=== PATIENT | female | born 1965 | race Caucasian/White ===

== ENCOUNTER 2019-11-12 20:36 | Emergency (ER) | payer OTHER, SELFPAY ==
[2019-11-12 20:38] VITALS: BP 217/110; PULSE 97; RESP 19; TEMP 36.6; O2SAT 100
--- NOTE | 2019-11-12 21:09 | ED.SKABFB ---
HPI - Skin/Abscess/Foreign Bdy General Chief complaint: Skin/Abscess/Foreign Body Stated complaint: bite of R arm Time Seen by Provider: 11/12/19 20:42 History of Present Illness HPI narrative: She has what she believes is a spider bite to the right antecubital fossa. Noticed it today. concerned that it is a brown recluse bite. She has killed multiple brown recluse spiders in her house recently. Bite itched at first, now mild burning sensation. No fever, pain. Related Data Allergies Allergy/AdvReac Type Severity Reaction Status Date / Time acetaminophen Allergy Unknown Verified 10/23/18 02:36 shellfish derived Allergy Unknown Anaphylactic Verified 10/23/18 02:36 Shock HYDROCODONE BIT Allergy Unknown Uncoded 10/23/18 02:36 Review of Systems Review of Systems: All systems reviewed & are unremarkable except as noted in HPI and below Constitutional: Constitutional: Denies chills and Denies fever(s) Cardiovascular: Cardiovascular: Denies chest pain Respiratory: Respiratory: Denies dyspnea Gastrointestinal: Gastrointestinal: Denies abdominal pain PMF Social History Social History Gender identity (if verbalized by the patient): Female Exam Const: General: no acute distress and alert Orientation/consciousness: patient oriented x3 HENMT: Head: normal to inspection Resp: Effort & Inspection: normal respiratory effort Auscultation: clear to auscultation bilaterally Cardio: Rate: regular rate Rhythm: regular rhythm Skin: Other: Punctate wound with minimal surrounding erythema in right AC Neuro: General: patient oriented x3, moves all extremities and CN's II-XI intact bilaterally Speech: normal speech Course Vital Signs Vital signs: Vital Signs Temperature 36.6 C 11/12/19 20:38 Pulse Rate 97 11/12/19 20:38 Respiratory Rate 11/12/19 20:38 Blood Pressure 217/110 H 11/12/19 20:38 Pulse Oximetry 100 11/12/19 20:38 Temperature 36.3 C L 11/12/19 21:15 Pulse Rate 80 11/12/19 21:15 Respiratory Rate 19 11/12/19 21:15 Blood Pressure 185/88 H 11/12/19 21:15 Pulse Oximetry 97 11/12/19 21:15 MDM - Skin/Abscess/Foreign Bdy MDM Narrative Medical decision making narrative: Exam consistent with possible brown recluse bite. Will start bactrim Medical Records Attestation: I reviewed the patient's medical records. Discharge Plan Discharge Clinical Impression: Brown recluse spider bite Patient Disposition: Home, Self-Care Condition: Stable Instructions: Antibiotic Form, Brown Recluse Spider Bite (ED) Prescriptions: New sulfamethoxazole-trimethoprim [Bactrim DS] 800-160 mg tablet 1 tablet PO Q12H Qty: 14 RF: 0 Follow-up/Referrals: Nishant,Tej Molina MD [Primary Care Provider] - Discharge Date/Time: 11/12/19 21:16
[2019-11-12 21:15] VITALS: BP 185/88; PULSE 80; RESP 19; TEMP 36.3; O2SAT 97
== END 2019-11-12 21:16 | disposition home or self-care (01) ==
PROVIDERS: Emergency Provider Emergency Medicine; PCP Family Medicine
DX: T63.331A Toxic effect of venom of brown recluse spider, accidental (unintentional), initial encounter (principal)
CPT/HCPCS: 99283; A9270

== ENCOUNTER 2020-06-05 18:25 | Inpatient (IN) | payer OTHER, SELFPAY ==
--- NOTE | ~2020-06-05 | XR_ITS ---
EXAMINATION: XR ankle RT min 3V EXAM DATE: 06/05/2020 20:40 INDICATION: Initial encounter following injury, with pain of the right ankle. TECHNIQUE: Right ankle frontal, lateral and oblique projections obtained and reviewed. Correlation is made to tibia-fibula examination 03/03/2010. FINDINGS: The right ankle mortise appears intact. There are moderate size inferior and tiny posterio r calcaneal spurs. There are no acute fractures or dislocations identified. There is no subcutaneous gas. The soft tissue is unremarkable. There are no radiopaque foreign bodies. IMPRESSION: 1. Right ankle exam without acute osseous findings. 2. Calcaneal spurs. Reviewed, dictated and finalized at location A. VERY RN
--- NOTE | ~2020-06-05 | XR_ITS ---
EXAMINATION: XR chest 2V EXAM DATE: 06/05/2020 19:29 INDICATION: Mid to left-sided chest pain down left arm for 2 hours, progressing. TECHNIQUE: Frontal and lateral projections of the chest obtained and reviewed. Comparison is made to prior examination from 05/21/2017. FINDINGS: The lungs are clear. There are no pleural effusions. The cardiomediastinal silhouette is upper limits of normal. There is no pneumothorax suspected. The bones and soft tissues are unremark able. IMPRESSION: No acute cardiopulmonary findings. Reviewed, dictated and finalized at location A. 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
--- NOTE | 2020-06-05 18:27 | ECG_ITS ---
Measurements Intervals [place] Rate: 93 P: 38 IN: 155 QRS: 19 QRSD: 91 T: 26 QT: 388 QTc: 484 Interpretive Statements SINUS RHYTHM VOLTAGE CRITERIA FOR LVH BORDERLINE ST-T WAVE ABNORMALITY- INFERIOR LEADS BORDERLINE ECG Electronically Signed On 06-06-2020 7:50:48 [employer] SWITCHMAN by Teo Anthony D.O.
[2020-06-05 18:45] VITALS: BP 191/108; PULSE 92; RESP 19; TEMP 36.4; O2SAT 97
[2020-06-05 19:05] LABS: Basophils Absolute Auto 0.1 K/mm3 (0.0-0.1); Basophils Percent Auto 1.2 % (0.2-1.2); Eosinophils Absolute Auto 0.2 K/mm3 (0-0.3); Eosinophils Percent Auto 2.1 % (0-4.4); Hematocrit 46.8 % (37.0-47.0); Hemoglobin 16.7 g/dL (12.0-15.0); Immature Granulocyte Absolute 0.06 K/mm3 (0.00-0.031); Immature Granulocyte Percent A 0.6 % (0-0.5); Lymphocytes Absolute Auto 3.02 K/mm3 (0.9-3.2); Lymphocytes Percent Auto 29.4 % (18.3-44.2); Mean Corpuscular HGB Conc 35.7 g/dl (32-36); Mean Corpuscular Hemoglobin 32.5 pg (26-34); Mean Corpuscular Volume 91.1 fl (80-100); Mean Platelet Volume 8.8 fl (7.4-10.4); Monocytes Percent Auto 10.1 % (2.6-8.5); Neutrophils Absolute Auto 5.8 K/mm3 (1.3-6.7); Neutrophils Percent Auto 56.6 % (45.5-73.1); Platelet Count Result 312 k/mm3 (150-375); Red Blood Count 5.14 M/mm3 (4.2-5.4); Red Cell Distribution Width 12.5 % (11.5-14.5); White Blood Count 10.3 K/mm3 (4.5-10.0)
[2020-06-05 19:19] LABS: Anion Gap 7 mmol/L (8-16); Blood Urea Nitrogen 10 mg/dL (7-17); Calcium 9.5 mg/dL (8.4-10.2); Carbon Dioxide 29 mmol/L (22-30); Chloride 102 mmol/L (98-107); Estimated CRCL calculation 95 ml/min; Estimated Glomerular Filt Rate > 60; Glucose 121 mg/dL (65-105); INR 0.9; Potassium 3.6 mmol/L (3.4-5.0); Prothrombin Time 12.2 Seconds (11.1-14.7); Sodium 138 mmol/L (137-145)
[2020-06-05 19:20] LABS: Partial Thromboplastin Time 24.5 SECONDS (22.3-36.8)
[2020-06-05 19:38] LABS: Troponin I 0.051 ng/mL (0.000-0.034)
[2020-06-05] MEDS: ASPIRIN 81 MG CHEWABLE TABLET 324 MG PO (20:03)
--- NOTE | 2020-06-05 20:24 | ED.GENADULT ---
HPI - General Adult General Chief complaint: Chest Pain Stated complaint: chest pain since 1400 Time Seen by Provider: 06/05/20 20:15 History of Present Illness HPI narrative: Patient a 54-year-old female who presents the emergency department with chief complaint of chest pain. The patient reports this evening she started having a tightness in her chest that radiated to her left arm and into her neck. Patient states she not had discomfort like this before reports she does have history of anxiety and attempted to take Xanax. The patient states that she took 1 mg of Xanax fell asleep took a nap and then when she woke up she started having discomfort again. The patient denies diaphoresis denies shortness of breath reports that she had a stress test many years ago but does have history of hypertension high cholesterol and she does smoke. Incidentally the patient reported that she was on a stepstool this evening and she lost her balance caught herself as she fell but rolled her right ankle. The patient states that she has pain on the lateral aspect of her right ankle. Patient took aspirin prior to arrival in the emergency department. Related Data Home Medications Medication Instructions Recorded Confirmed alprazolam 0.5 mg PO BID PRN 06/05/20 amlodipine 10 mg PO DAILY 06/05/20 aspirin [Adult Aspirin EC Low 81 mg PO DAILY 06/05/20 Strength] atenolol 25 mg PO BID 06/05/20 atorvastatin 20 mg PO HS 06/05/20 [id number]-wfkatoagjycce-etrb 1 tablet PO DIRECTED PRN 06/05/20 duloxetine 120 mg PO DAILY 06/05/20 eszopiclone [Lunesta] 3 mg PO HS 06/05/20 famotidine 40 mg PO HS 06/05/20 fluticasone propionate 1 spray INTRANASAL TID 06/05/20 hydrochlorothiazide 25 mg PO DAILY 06/05/20 lisinopril 10 mg PO BID 06/05/20 meclizine 25 mg PO TID PRN 06/05/20 omeprazole 40 mg PO DAILY 06/05/20 tramadol 50 mg PO TID PRN 06/05/20 vitamin B complex [B 1 tablet PO DAILY 06/05/20 Complex-Vitamin B12] Allergies Allergy/AdvReac Type Severity Reaction Status Date / Time shellfish derived Allergy Unknown Anaphylactic Verified 06/05/20 18:51 Shock HYDROCODONE BIT AdvReac Unknown Sweating Uncoded 06/05/20 18:51 Review of Systems Review of Systems: Narrative: A 10 system review of systems was completed on the patient and is negative except for what is stated in the HPI. Nursing and ancillary documentation was reviewed. [facility] Social History Social History Gender identity (if verbalized by the patient): Female Comments Past medical history significant for hypertension hyperlipidemia Social history patient reports that she smokes cigarettes Exam Narrative: Exam Narrative: GENERAL: Well-appearing, well-nourished, and in no acute distress. HEAD: Normocephalic, atraumatic. EYES: PERRLA and EOMI. ENT: Nares clear, no rhinorrhea or epistaxis. Mucous membranes moist. NECK: Supple. CHEST: Clear to auscultation. No respiratory distress. HEART: Regular rate and rhythm. No murmur heard. Normal peripheral pulses. ABDOMEN: Soft, nontender, nondistended, normal active bowel sounds. EXTREMITIES: Normal range of motion. No edema. There is tenderness to palpation on the lateral malleolus of the right ankle SKIN: Warm, dry, no rash. NEURO: No focal deficits. Alert and oriented x3. PSYCH: Normal mood and affect. Course Course Emergency Course: EKG is sinus rhythm rate of [address] elevation or ST depression Vital Signs Vital signs: Vital Signs Temperature 36.4 C L 06/05/20 18:45 Pulse Rate 92 06/05/20 18:45 Respiratory Rate 06/05/20 18:45 Blood Pressure 191/108 H 06/05/20 18:45 Pulse Oximetry 97 06/05/20 18:45 Temperature 36.4 C L 06/05/20 18:45 Pulse Rate 94 06/05/20 22:48 Respiratory Rate 06/05/20 20:45 Blood Pressure 178/94 H 06/05/20 20:45 Pulse Oximetry 95 06/05/20 20:45 Medical Decision Making Vital Signs Vital Si
[2020-06-05 20:45] VITALS: BP 178/94; PULSE 93; RESP 19; O2SAT 95
[2020-06-05 22:17] LABS: Troponin I 0.118 ng/mL (0.000-0.034)
[2020-06-05] MEDS: HEPARIN SODIUM 5,000 UNITS/ML VIAL 4000 UNITS IV PUSH (22:32)
[2020-06-05] MEDS: NITROGLYCERIN OINTMENT 1 INCH DOSE TRANSDERM (22:45)
[2020-06-05 22:48] VITALS: PULSE 94
[2020-06-05] MEDS: METOPROLOL TARTRATE INJ 5 MG/5 ML VIAL IV PUSH (22:48)
[2020-06-05 23:00] VITALS: BP 177/92; PULSE 85; RESP 18; O2SAT 93
[2020-06-05] MEDS: traMADol HCL (*CRX) 50 MG TABLET PO (23:01)
[2020-06-05] MEDS: HEPARIN SOD/D5W 100 UNITS/ML 25,000 UNITS/250 ML BAG 9 UNITS IV CONT (23:03)
[2020-06-06] VITALS (17 sets, daily range): BP systolic 127–178; BP diastolic 66–102; PULSE 18–88; RESP 14–20; TEMP 36–37.3; O2SAT 91–99; BMI 37.2
--- NOTE | 2020-06-06 00:55 | PC.NURSE ---
This patient, Shahida Early, was admitted to IMU Room 206-02. Patient/family oriented to hospital policies and general routines including ID bracelet, bed and alarms, visiting hours, pain management, procedures, bathroom and other care routines, personal items, smoking policy, room service/diet, and visiting hours. Information on how to activate the Rapid Response Team has been discussed. Patient/Family are encouraged to report perceived risks to care and to ask questions if they do not understand what they are told or what they should do.
[2020-06-06] MEDS: NITROGLYCERIN OINTMENT 1 INCH DOSE TRANSDERM ×4 (01:43→18:56)
[2020-06-06 01:59] LABS: Troponin I 0.174 ng/mL (0.000-0.034)
[2020-06-06 05:16] LABS: Basophils Absolute Auto 0.1 K/mm3 (0.0-0.1); Basophils Percent Auto 0.8 % (0.2-1.2); Eosinophils Absolute Auto 0.3 K/mm3 (0-0.3); Eosinophils Percent Auto 2.8 % (0-4.4); Hematocrit 43.7 % (37.0-47.0); Hemoglobin 15.2 g/dL (12.0-15.0); Immature Granulocyte Absolute 0.06 K/mm3 (0.00-0.031); Immature Granulocyte Percent A 0.6 % (0-0.5); Lymphocytes Absolute Auto 3.69 K/mm3 (0.9-3.2); Lymphocytes Percent Auto 39.2 % (18.3-44.2); Mean Corpuscular HGB Conc 34.8 g/dl (32-36); Monocytes Percent Auto 10.9 % (2.6-8.5); Neutrophils Absolute Auto 4.3 K/mm3 (1.3-6.7); Neutrophils Percent Auto 45.7 % (45.5-73.1); Platelet Count Result 297 k/mm3 (150-375); Red Blood Count 4.75 M/mm3 (4.2-5.4); Red Cell Distribution Width 12.6 % (11.5-14.5); White Blood Count 9.4 K/mm3 (4.5-10.0)
[2020-06-06 05:25] LABS: Partial Thromboplastin Time 41.2 SECONDS (22.3-36.8)
[2020-06-06] MEDS: HEPARIN SODIUM 5,000 UNITS/ML VIAL 4000 UNITS IV PUSH (06:14)
--- NOTE | 2020-06-06 07:16 | PM.IMHP ---
H&P: HPI History of Present Illness Date/Time: 06/06/20 07:16 Chief Complaint: Chest pain Narrative: Shahida Early is a 54 year old female with a history of hypertension, high cholesterol, tobacco use, who presented to the emergency room after having chest pain. 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 Patient believed it was related to her anxiety and when she got home she took Xanax and went and took a nap. After the patient woke up she was not having any more chest pain and then she began cleaning her house she developed substernal chest tightness with intermittent sharp pains radiating into her bilateral neck/jaw and down her left arm. She had associated shortness of breath but denies any diaphoresis, nausea, or any other symptoms at this time. She took 3x 81 mg aspirins before coming into the ER. The patient reported having a cardiac catheterization at [facility] about 7-8 years ago which showed she had only 24% blockage. Most of her care is at [facility]. Initial vitals showed she was afebrile, own non tachycardic, normal respiratory rate and oxygenation, elevated blood pressure at 191/108. Initial labs showed slight leukocytosis at 10,300, normal coag panel, BMP was normal other than slightly elevated glucose at 121, troponin was elevated and trending up. Chest x-ray showed No acute cardiopulmonary findings. She was admitted into the hospital for an NSTEMI with consult to Cardiology and started on IV heparin drip. Review of Systems Review of Systems: All systems reviewed & are unremarkable except as noted in HPI and below Constitutional: Constitutional: Reports fatigue ENT: Reports vertigo and Reports nasal congestion Cardiovascular: Cardiovascular: Reports chest pain Gastrointestinal: Gastrointestinal: Denies abdominal pain, Denies nausea and Denies vomiting Musculoskeletal: Musculoskeletal: Reports back pain (Chronic back pain), Reports arthralgias (Right ankle after fall) and Reports joint swelling (Right ankle after fall) Neurologic: Reports abnormal gait (Due to vertigo) and Reports vertigo [facility] Past Medical History Medical History (Updated 06/06/20 @ 15:40 by Sari Wang PA-C) Anxiety Depression Diverticulosis Fibromyalgia GERD (gastroesophageal reflux disease) History of cystocele History of rectocele HLD (hyperlipidemia) Hx of insomnia Hx of migraine headaches Hypertension IBS (irritable bowel syndrome) RAMIREZ (obstructive sleep apnea) Sleep apnea Starting CPAP, 2020 Surgical History Surgical History (Updated 06/06/20 @ 15:40 by Sari Wang PA-C) H/O abdominoplasty Hx of cardiac cath Hx of colonoscopy Hx of hysterectomy Hx of laminectomy Family History Family History Father Acute myocardial infarction History of 2 heart attacks, and as of April 18, 2020 is doing well in his mid 70s Hypertension Sibling Diabetes mellitus Mother History of blood clots Pulmonary emboli associated with smoking Hypertension Carotid arterial disease History of stroke and carotid endarterectomy Dementia Had dementia, of encephalitis age 75 Mother Cerebrovascular accident Social History Social History (Updated 06/06/20 @ 15:46 by Sari Wang PA-C) Social History: , 2 sons and a stepchild, lost her daughter a few decades ago. She lives at home with her and one son. 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 Decided she would quit smoking this admission 06/05/20. Smoking packs per day: 1 Smoking cigarettes per day: 20.0 Years smoked: 12 Smoking pack-years: 12.00 Smoking status: Current every day smoker Tobacco type: cigarettes Smoking end date: 06/05/20 Alcohol intake: current Alcohol use details: Few alcoholic beverages per month, beer or w
--- NOTE | 2020-06-06 08:17 | ECHO_ITS ---
Patient Info Name: Shahida Early Age: 54 years : 1965 Gender: Female Ht: 65 in Wt: 223 lbs BSA: 2.20 m2 HR: 68 bpm Heart Rhythm: Sinus Rhythm Technical Quality: Fair Exam Date: 06/06/2020 1:03 PM Exam Location: [facility] Patient Status: Inpatient Admit Date: 06/05/2020 Staff Ordering Physician: Sita Hawley MD Market Researcher: Agueda Muniz RDCS Attending Provider: Sari Wang PA-C Referring Physician: Marleen COLÓN; Exam Type: CA echo dop color flow w con Contrast/Agitated Saline Contrast/Ag. Saline: Definity Amount: 4.00 ml Summary 1. The left ventricle is of normal size, with borderline left ventricular hypertrophy and good systolic function of all segments. No focal wall motion abnormalities seen. Normal diastolic function. Visual ejection fraction is 65-70%. 2. Left atrial chamber dimension is mildly enlarged. 3. No significant valve disease. 4. Normal sinus rhythm. Left Ventricle Left ventricular chamber dimension is normal. Left ventricular systolic function is normal, estimated at 65-70%. There is no increased left ventricular wall thickness. Left ventricular septal wall motion is normal. The left ventricular diastolic function is normal. Right Ventricle Right ventricular chamber dimension is normal. Right ventricular systolic function is normal. Left Atria Left atrial chamber dimension is mildly enlarged. Right Atria Right atrial chamber dimension is normal. Aortic Valve The aortic valve is trileaflet. There is no aortic valve sclerosis. There is no aortic valve stenosis. There is no aortic valve regurgitation. Pulmonic Valve The pulmonic valve is normal. There is no pulmonic valve stenosis. There is no pulmonic regurgitation. Mitral Valve The mitral valve has normal leaflets. There is no mitral valve stenosis. There is no mitral valve regurgitation. Tricuspid Valve The tricuspid valve leaflets are normal. There is no significant tricuspid valve stenosis. There is trace tricuspid valve regurgitation. No pulmonary hypertension, estimated pulmonary arterial systolic pressure is Empty. Pericardium/Pleural The pericardium appears normal. There is no pericardial effusion. Inferior Vena Cava Normal inferior vena cava with >50% collapse upon inspiration consistent with Empty right atrial pressure, Empty. Aorta The aortic root size at the sinus of Valsalva is normal. The prox ascending aorta size is normal. Left Ventricular Outflow Tract Name Value Normal LVOT 2D LVOT Diameter 1.98 cm LVOT Doppler LVOT Peak Gradient 7 mmHg LVOT Mean Gradient 4 mmHg LVOT VTI 33.97 cm LVOT VTI/AV VTI Ratio 1.18 LVOT Stroke Volume 84.09 ml LVOT CO 5.79 l/min LVOT CI 2.80 L/min/m2 Pulmonic Valve Name
--- NOTE | 2020-06-06 08:17 | ECG_ITS ---
Measurements Intervals [place] Rate: 80 P: 14 MA: 136 QRS: 22 QRSD: 93 T: 29 QT: 388 QTc: 449 Interpretive Statements SINUS RHYTHM NONSPECIFIC T-WAVE ABNORMALITY- ANTEROLAT/INF LEADS BASELINE WANDER- V2 BORDERLINE ECG Electronically Signed On 06-06-2020 9:01:48 CHICKEN FANCIER by Teo Anthony D.O.
[2020-06-06] MEDS: lisinopriL 10 MG TABLET PO (09:41)
[2020-06-06] MEDS: DULoxetine HCL 60 MG CAPSULE.DR 120 MG PO (09:41)
[2020-06-06] MEDS: ASPIRIN 81 MG ENTERIC TABLET PO (09:41)
[2020-06-06] MEDS: atenoloL 25 MG TABLET PO ×2 (09:42→20:42)
[2020-06-06] MEDS: amLODIPine BESYLATE 5 MG TABLET 10 MG PO (09:42)
[2020-06-06] MEDS: hydroCHLOROthiazide 25 MG TABLET PO (09:42)
[2020-06-06] MEDS: VITAMIN B COMPLEX CAPSULE 1 CAP PO (09:42)
[2020-06-06] MEDS: PANTOPRAZOLE 40 MG TABLET PO (09:42)
[2020-06-06] MEDS: FLUTICASONE PROPIONATE 0.05% NA SPR 16 GM BTL (*BKC) 1 SPRAY NASAL ×2 (09:43→20:42)
--- NOTE | 2020-06-06 10:35 | PM.CNCAR ---
History of Present Illness History of Present Illness Consult date/time: 06/06/20 10:35 Requesting physician: Sari Wang PA-C Consult reason: chest pain Reason For Visit: NSTEMI, hypertension Narrative: DAte of SErvice: 06/06/2020 Shahida Early is a 54 y.o. WF whom I was asked to see at the request of the hospitalist for my advice and opinion regarding her chest pain and elevated troponins, in consultation. [facility] Past Medical History Medical History (Updated 06/06/20 @ 07:18 by Sari Wang PA-C) Anxiety Depression GERD (gastroesophageal reflux disease) HLD (hyperlipidemia) Hypertension Family History Family History (Updated 06/06/20 @ 01:28 by Dorcas Liu RN) Father Acute myocardial infarction Hypertension Sibling Diabetes mellitus Mother History of blood clots Hypertension Mother Cerebrovascular accident Social History Social History Smoking packs per day: 1 Smoking cigarettes per day: 20.0 Years smoked: 12 Smoking pack-years: 12.00 Smoking status: Current every day smoker Tobacco type: cigarettes Alcohol intake: current Substance use: never Gender identity (if verbalized by the patient): Female Spiritual care concerns: No Meds Home Medications and Allergies Home Medications Medication Instructions Recorded Confirmed Type alprazolam 0.5 mg PO BID PRN 06/05/20 06/06/20 History amlodipine 10 mg PO DAILY 06/05/20 06/06/20 History aspirin [Adult Aspirin EC Low 81 mg PO DAILY 06/05/20 06/06/20 History Strength] atenolol 25 mg PO BID 06/05/20 06/06/20 History atorvastatin 20 mg PO HS 06/05/20 06/06/20 History erhheldlff-apfdxmulsnncw-wbas 1 tablet PO DIRECTED PRN 06/05/20 06/06/20 History duloxetine 120 mg PO DAILY 06/05/20 06/06/20 History eszopiclone [Lunesta] 3 mg PO HS 06/05/20 06/06/20 History famotidine 40 mg PO HS 06/05/20 06/06/20 History fluticasone propionate 1 spray INTRANASAL TID 06/05/20 06/06/20 History hydrochlorothiazide 25 mg PO DAILY 06/05/20 06/06/20 History lisinopril 10 mg PO BID 06/05/20 06/06/20 History meclizine 25 mg PO TID PRN 06/05/20 06/06/20 History omeprazole 40 mg PO DAILY 06/05/20 06/06/20 History tramadol 50 mg PO TID PRN 06/05/20 06/06/20 History vitamin B complex [B 1 tablet PO DAILY 06/05/20 06/06/20 History Complex-Vitamin B12] ibuprofen 400 mg PO TID PRN 06/06/20 06/06/20 History Allergies Allergy/AdvReac Type Severity Reaction Status Date / Time shellfish derived Allergy Unknown Anaphylactic Verified 06/05/20 18:51 Shock HYDROCODONE BIT AdvReac Unknown Sweating Uncoded 06/05/20 18:51 Vital Signs Vital Signs - 24 hr 06/05/20 18:45 06/05/20 20:45 06/05/20 22:48 Temperature 97.5 F L Pulse Rate 92 93 94 Respiratory Rate 19 19 Blood Pressure 191/108 H 178/94 H Pulse Oximetry 97 95 06/05/20 23:00 06/06/20 00:15 06/06/20 01:00 Temperature 99.2 F Pulse Rate 85 84 83 Respiratory Rate 18 20 18 Blood Pressure 177/92 H 178/102 H 140/71 Pulse Oximetry 93 93 97 06/06/20 01:04 06/06/20 02:00 06/06/20 04:00 Temperature 96.8 F L Pulse Rate 84 81 18 L Respiratory Rate 20 Blood Pressure 127/74 Pulse Oximetry 99 06/06/20 05:44 06/06/20 08:00 06/06/20 09:32 Temperature 97 F L Pulse Rate 88 85 Respiratory Rate 16 Blood Pressure 168/89 H Pulse Oximetry 91 91 06/06/20 09:42 Temperature Pulse Rate 85 Respiratory Rate Blood Pressure Pulse Oximetry Results Labs and Meds Result diagrams: 06/06/20 04:52 06/05/20 18:55 Lab results: Cardiac Enzymes 06/05/20 06/05/20 06/06/20 Range/Units 18:55 21:39 01:07 Troponin I 0.051 H* 0.118 H* D 0.174 H* D (0.000-0.034) ng/mL Coagulation 06/05/20 06/06/20 Range/Units 18:55 04:52 PT 12.2 (11.1-14.7) Seconds APTT 24.5 41.2 H (22.3-36.8) SECONDS CBC 06/05/20 06/06/20 Range/Units 18:55 0
--- NOTE | 2020-06-06 12:05 | PM.CNCAR ---
Assessment and Plan Assessment and plan (1) Acute non-ST elevation myocardial infarction (NSTEMI): Code(s): I21.4 - Non-ST elevation (NSTEMI) myocardial infarction Status: Acute Assessment and Plan: Ms. Early presents with acute coronary syndrome and a non STEMI. Doing well today on heparin drip and aspirin. Heart rate and blood pressure are controlled, BP much better than that seen in the emergency room. Repeat EKG as below, echocardiogram, check lipids, add JOHAN-inhibitor. I have recommended cardiac catheterization on Monday, reviewed CAD, ACS, cardiac catheterization and stents with patient. She desires to proceed. If the patient becomes unstable we will perform the cardiac catheterization emergently. (2) Hypertension: Qualifiers: Hypertension type: unspecified Qualified Code(s): I10 - Essential (primary) hypertension Code(s): I10 - Essential (primary) hypertension Status: Acute Assessment and Plan: History of hypertension, quite high in the ER, apparently creeping up as an outpatient. Adding an JOHAN-inhibitor (3) HLD (hyperlipidemia): Code(s): E78.5 - Hyperlipidemia, unspecified Status: Acute Assessment and Plan: Taking atorvastatin 20 mg daily. Will check lipids and increase atorvastatin to 40 mg daily per guidelines for ACS. (4) Tobacco use: Code(s): Z72.0 - Tobacco use Status: Acute Assessment and Plan: Counseled patient regarding tobacco use. Patient states she is quitting this admission. History of Present Illness History of Present Illness Consult date/time: 06/06/20 12:05 Consult reason: chest pain Reason For Visit: NSTEMI, hypertension Narrative: Shahida Early is a 53 year old female whom I was asked to see at the request of the hospitalist for my advice and opinion regarding her chest pain and elevated troponins/NSTEMI, in consultation. She has a history of hypertension, hyperlipidemia, smoking, and a family history of CAD. PMD is Dr. Tej Dillard; also sees his PQ Mindy Cazares. Ms Early was doing well until yesterday when she was not feeling well. 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 Later she had more intense pain. She went home, took 2 Xanax and laid down for an hour and the discomfort resolved. In the evening she was doing dishes and she had more intense chest pain radiating to the left arm and neck associated with some mild shortness of breath. She came to the emergency room and was found have elevated troponins. She was started on a heparin drip in the emergency room and her aspirin has been continued. She has some mild discomfort through the night but did not mention it to anyone and is pain-free this morning. About 8 years ago the patient had a cardiac catheterization at [facility] and she was told she had a 24% blockage. She was started on aspirin. She has done well until yesterday. She does not have any bleeding problems and is not planning on any surgeries in the next several months. Her blood pressure has been creeping up recently. Review of Systems Constitutional: Constitutional: Denies lethargy Eyes: Eyes: Reports no additional eye complaints ENT: Denies epistaxis Comments: Just diagnosised w sleep apnea and her CPAP machine arrived yesterday. Cardiovascular: Cardiovascular: Reports chest pain,
[2020-06-06 12:46] LABS: Partial Thromboplastin Time 67.1 SECONDS (22.3-36.8)
[2020-06-06] MEDS: HEPARIN SODIUM 5,000 UNITS/ML VIAL 3000 UNITS IV PUSH (13:11)
[2020-06-06] MEDS: ACETAMINOPHEN 325 MG TABLET 650 MG PO ×2 (14:04→18:55)
[2020-06-06 18:13] LABS: Partial Thromboplastin Time 90.8 SECONDS (22.3-36.8)
[2020-06-06 18:48] LABS: Add Urine Microscopic? YES; Appearance Urine Clear (Clear); Bilirubin Urine Negative (Negative); Blood Urine 2+ (Negative); Color Urine Yellow (Yellow); Glucose Urine UA Negative (Negative); Ketones Urine Negative (Negative); Leukocyte Esterase Ur Negative LEU/UL (Negative); Nitrate Urine Negative (Negative); Protein Urine Negative (Negative); Specific Grav Ur 1.009 (1.001-1.035); Squamous Epithelial Cell Urine Rare /hpf (Few); Urobilinogen Urine Negative mg/dL (<2.0); WBC Urine 0-3 /hpf
[2020-06-06] MEDS: HEPARIN SOD/D5W 100 UNITS/ML 25,000 UNITS/250 ML BAG 14 UNITS IV CONT (18:56)
[2020-06-06] MEDS: FAMOTIDINE 20 MG TABLET 40 MG PO (20:42)
[2020-06-06] MEDS: ATORVASTATIN 40 MG TABLET PO (20:42)
[2020-06-07] VITALS (17 sets, daily range): BP systolic 129–180; BP diastolic 66–97; PULSE 58–85; RESP 16–22; TEMP 35.9–37.2; O2SAT 93–98
[2020-06-07] MEDS: NITROGLYCERIN OINTMENT 1 INCH DOSE TRANSDERM ×5 (00:39→23:12)
[2020-06-07] MEDS: ACETAMINOPHEN 325 MG TABLET 650 MG PO ×4 (00:41→17:57)
[2020-06-07 00:52] LABS: Partial Thromboplastin Time 99.1 SECONDS (22.3-36.8)
[2020-06-07 05:24] LABS: Anion Gap 2 mmol/L (8-16); Blood Urea Nitrogen 12 mg/dL (7-17); Calcium 8.9 mg/dL (8.4-10.2); Carbon Dioxide 33 mmol/L (22-30); Chloride 101 mmol/L (98-107); Cholesterol 249 mg/dL (0-200); Estimated CRCL calculation 108 ml/min; Estimated Glomerular Filt Rate > 60; Glucose 120 mg/dL (65-105); HDL Direct 51 mg/dL; Magnesium 1.8 mg/dL (1.6-2.3); Potassium 3.4 mmol/L (3.4-5.0); Sodium 136 mmol/L (137-145); Triglycerides 259 mg/dL (<150)
[2020-06-07 05:35] LABS: LDL Cholesterol Direct 161 mg/dL
[2020-06-07 07:18] LABS: Hemoglobin A1C 5.6 % (<5.7)
[2020-06-07] MEDS: FLUTICASONE PROPIONATE 0.05% NA SPR 16 GM BTL (*BKC) 1 SPRAY NASAL (08:28)
[2020-06-07] MEDS: VITAMIN B COMPLEX CAPSULE 1 CAP PO (08:29)
[2020-06-07] MEDS: amLODIPine BESYLATE 5 MG TABLET 10 MG PO (08:31)
[2020-06-07] MEDS: atenoloL 25 MG TABLET PO ×2 (08:33→21:10)
[2020-06-07] MEDS: ASPIRIN 81 MG ENTERIC TABLET PO (08:33)
[2020-06-07] MEDS: lisinopriL 10 MG TABLET PO (08:34)
[2020-06-07] MEDS: DULoxetine HCL 60 MG CAPSULE.DR 120 MG PO (08:34)
[2020-06-07] MEDS: hydroCHLOROthiazide 25 MG TABLET PO (08:34)
[2020-06-07] MEDS: PANTOPRAZOLE 40 MG TABLET PO (08:34)
[2020-06-07] MEDS: predniSONE 40 MG, predniSONE 10 MG 50 MG PO ×2 (08:35→17:57)
--- NOTE | 2020-06-07 11:55 | PM.PNCARD ---
Progress Note: A&P Assessment and Plan (1) Acute non-ST elevation myocardial infarction (NSTEMI): Code(s): I21.4 - Non-ST elevation (NSTEMI) myocardial infarction Status: Acute Assessment and Plan: Ms. Early presents with acute coronary syndrome and a non STEMI, peak troponin 0.017, slight inferior ST changes on admission but no wall motion abnormalities on echo. Doing well today on heparin drip and aspirin. Heart rate and blood pressure are controlled, BP much better than that seen in the emergency room. I have recommended cardiac catheterization on Monday, reviewed CAD, ACS, cardiac catheterization and poss. stents/surgery with patient. Again reviewed the procedure. She desires to proceed. If the patient becomes unstable we will perform the cardiac catheterization emergently. (2) Hypertension: Qualifiers: Hypertension type: unspecified Qualified Code(s): I10 - Essential (primary) hypertension Code(s): I10 - Essential (primary) hypertension Status: Acute Assessment and Plan: History of hypertension, quite high in the ER, apparently creeping up as an outpatient. Added an JOHAN-inhibitor (3) HLD (hyperlipidemia): Code(s): E78.5 - Hyperlipidemia, unspecified Status: Acute Assessment and Plan: Cholesterol 249, LDL 161, TG 259 while taking atorvastatin 20 mg q.h.s. -- still very high! Changed to rosuvastatin 40 mg daily. (4) Tobacco use: Code(s): Z72.0 - Tobacco use Status: Acute Assessment and Plan: Counseled patient regarding tobacco use. Patient states she is quitting this admission. (5) History of anaphylaxis: Code(s): Z87.892 - Personal history of anaphylaxis Status: Acute Assessment and Plan: Has had anaphylaxis to shellfish. Unlike if the there is any cross reactivity with IV contrast but will provide prophylaxis to be safest. Subjective Date/time seen: 06/07/20 11:55 Follow-up for ACS/non-STEMI. Date of service: 06/07/2019 doing well, up and about in her room, no further chest pain. Echo showed no segmental wall motion abnormalities. Remains on a heparin drip Review of Systems Constitutional: Constitutional: Denies fatigue and Denies weakness ENT: Denies epistaxis Cardiovascular: Cardiovascular: Denies chest pain, Denies pedal edema and Denies leg edema Comments: Feels the hands/finger are swollen Respiratory: Respiratory: Denies cough, Denies dyspnea and Denies dyspnea on exertion Gastrointestinal: Gastrointestinal: Denies abdominal pain Genitourinary: Genitourinary: Denies hematuria Musculoskeletal: Musculoskeletal: Denies neck pain Integumentary/Breasts: Skin/Breast: Denies rash Neurologic: Reports system reviewed and no additional complaints, except as documented Psychiatric: Psychiatric: Denies behavioral changes Exam Const: General: comfortable and no acute distress HENMT: General nose exam: no epistaxis Mouth: Yes moist mucous membranes Eyes: EOM: EOMs intact bilaterally Neck: Neck: supple Resp: Effort & Inspection: normal respiratory effort Auscultation: clear to auscultation bilaterally Cardio: Rate: regular rate Rhythm: regular rhythm Heart sounds: no murmurs GI: Inspection: non-distended GI Palp: Yes Soft to palpation and No Firmness to palpation present (GI) Neuro: Cognition (Neuro): normal cognition Speech: normal speech Extrem:
[2020-06-07] MEDS: HEPARIN SOD/D5W 100 UNITS/ML 25,000 UNITS/250 ML BAG 14 UNITS IV CONT (12:30)
--- NOTE | 2020-06-07 12:40 | PM.IMPN ---
Progress Note: A&P Assessment and Plan (1) Acute non-ST elevation myocardial infarction (NSTEMI): Code(s): I21.4 - Non-ST elevation (NSTEMI) myocardial infarction Status: Acute Assessment and Plan: Patient came with elevated troponins with no ST elevation found on EKG. Cardiology was consulted. Cardiology ordered heparin drip Nitropaste Echocardiogram showed normal EF 65-70%, normal diastolic function, borderline LVH. Plan for cardiac catheterization tomorrow Patient denies any chest pain at this time. Continue monitoring. Cardiology's recommendations appreciated. (2) Chest pain: Qualifiers: Chest pain type: unspecified Qualified Code(s): R07.9 - Chest pain, unspecified Code(s): R07.9 - Chest pain, unspecified Status: Acute Assessment and Plan: See NSTEMI (3) Hypertension: Qualifiers: Hypertension type: unspecified Qualified Code(s): I10 - Essential (primary) hypertension Code(s): I10 - Essential (primary) hypertension Status: Acute Assessment and Plan: Blood pressure was elevated on arrival. Continue home medications. BP 180/92 this morning, elevated. Cardiology adjusting medications as necessary. Will continue her home blood pressure regimen. (4) HLD (hyperlipidemia): Code(s): E78.5 - Hyperlipidemia, unspecified Status: Acute Assessment and Plan: Patient was on atorvastatin 20 mg. This was increased to 40 mg due to ACS guidelines FLP showed she was not well controlled, LDL 161, TC 249 Will need follow up FLP as outpatient with increase in Atorvastin. (5) Anxiety: Code(s): F41.9 - Anxiety disorder, unspecified Status: Acute Assessment and Plan: Continue home Xanax p.r.n.. (6) Vertigo: Code(s): R42 - Dizziness and giddiness Status: Acute Assessment and Plan: The last few weeks she did have some issues with vertigo, nasal congestion and was placed on meclizine, Flonase and some steroids by her PCP. She has been off on steroids now and is not taking meclizine in a few days due to improve symptoms. She still feels slightly off balance at times due to her vertigo. Continue with p.r.n. meclizine and Flonase (7) Urinary hesitancy: Code(s): R39.11 - Hesitancy of micturition Status: Acute Assessment and Plan: She also reports some hesitancy with urinating as well as foul odor to her urine. She saw her PCP a few weeks ago who did a urinalysis and she was told she did not have an infection. She has a long history of urologic issues and she will need to follow-up with the urologist as an outpatient for further monitoring and workup. UA was normal. No signs of infection. Some microscopic hematuria with 2+ blood and 6-10 RBCs. Will need Urology follow up and outpt work up (8) Ankle pain: Code(s): M25.579 - Pain in unspecified ankle and joints of unspecified foot Status: Acute Assessment and Plan: Yesterday prior to arrival she was also standing on a step stool when the stool fell over and inverted her right ankle. Ankle x-ray shows no acute fracture. She reports improved ankle pain and swelling at this time except when walking. Continue ankle brace for right ankle, rest, ice, compression, elevate She does not believe she has any crutches at this time. (9) RAMIREZ (obstructive sleep apnea): Code(s): G47.33 - Obstructive sleep apnea (adult) (pediatric) Status: Inactive Assessment and Plan: She was recently diagnosed with sleep apnea was suppo
[2020-06-07] MEDS: ROSUVASTATIN 10 MG TABLET 40 MG PO (12:43)
--- NOTE | 2020-06-07 17:03 | PHAR ---
The patient's home med of Eszopiclone [Lunesta] 3 mg Tablet has been verified.
[2020-06-07] MEDS: FAMOTIDINE 20 MG TABLET 40 MG PO (21:11)
[2020-06-08] VITALS (29 sets, daily range): BP systolic 125–157; BP diastolic 54–88; PULSE 63–78; RESP 13–21; TEMP 35.7–36.6; O2SAT 73–99
[2020-06-08 05:08] LABS: Partial Thromboplastin Time 84.8 SECONDS (22.3-36.8)
[2020-06-08] MEDS: predniSONE 40 MG, predniSONE 10 MG 50 MG PO ×2 (06:18→18:33)
[2020-06-08] MEDS: HEPARIN SOD/D5W 100 UNITS/ML 25,000 UNITS/250 ML BAG 14 UNITS IV CONT (06:19)
[2020-06-08] MEDS: ASPIRIN 81 MG ENTERIC TABLET PO (08:59)
[2020-06-08] MEDS: atenoloL 25 MG TABLET PO (08:59)
[2020-06-08] MEDS: amLODIPine BESYLATE 5 MG TABLET 10 MG PO (08:59)
[2020-06-08] MEDS: lisinopriL 10 MG TABLET PO (09:00)
[2020-06-08] MEDS: DULoxetine HCL 60 MG CAPSULE.DR 120 MG PO (09:00)
[2020-06-08] MEDS: PANTOPRAZOLE 40 MG TABLET PO (09:00)
[2020-06-08] MEDS: ROSUVASTATIN 10 MG TABLET 40 MG PO (09:00)
[2020-06-08] MEDS: FLUTICASONE PROPIONATE 0.05% NA SPR 16 GM BTL (*BKC) 1 SPRAY NASAL (09:00)
[2020-06-08] MEDS: VITAMIN B COMPLEX CAPSULE 1 CAP PO (09:00)
[2020-06-08 09:02] LABS: Magnesium 1.7 mg/dL (1.6-2.3)
[2020-06-08 09:16] LABS: Anion Gap 6 mmol/L (8-16); Blood Urea Nitrogen 13 mg/dL (7-17); Calcium 9.7 mg/dL (8.4-10.2); Carbon Dioxide 32 mmol/L (22-30); Chloride 100 mmol/L (98-107); Estimated CRCL calculation 107 ml/min; Estimated Glomerular Filt Rate > 60; Glucose 149 mg/dL (65-105); Potassium 4.3 mmol/L (3.4-5.0); Sodium 138 mmol/L (137-145)
--- NOTE | 2020-06-08 13:08 | PM.IMPN ---
Progress Note: A&P Assessment and Plan (1) Acute non-ST elevation myocardial infarction (NSTEMI): Code(s): I21.4 - Non-ST elevation (NSTEMI) myocardial infarction Status: Acute Assessment and Plan: Patient came with elevated troponins with no ST elevation found on EKG. Cardiology was consulted. Continue heparin drip until Cath this afternoon. Nitropaste PRN Echocardiogram showed normal EF 65-70%, normal diastolic function, borderline LVH. Patient denies any chest pain at this time. Continue monitoring. Cardiology's recommendations appreciated. (2) Chest pain: Qualifiers: Chest pain type: unspecified Qualified Code(s): R07.9 - Chest pain, unspecified Code(s): R07.9 - Chest pain, unspecified Status: Acute Assessment and Plan: See NSTEMI (3) Hypertension: Qualifiers: Hypertension type: unspecified Qualified Code(s): I10 - Essential (primary) hypertension Code(s): I10 - Essential (primary) hypertension Status: Acute Assessment and Plan: Blood pressure was elevated on arrival. Continue home medications. BP 129/54 this morning,stable. Cardiology adjusting medications as necessary. Will continue her home blood pressure regimen. (4) HLD (hyperlipidemia): Code(s): E78.5 - Hyperlipidemia, unspecified Status: Acute Assessment and Plan: Patient was on atorvastatin 20 mg. This was increased to 40 mg due to ACS guidelines FLP showed she was not well controlled, LDL 161, TC 249 Will need follow up FLP as outpatient with increase in Atorvastin. (5) Anxiety: Code(s): F41.9 - Anxiety disorder, unspecified Status: Acute Assessment and Plan: Continue home Xanax p.r.n.. (6) Vertigo: Code(s): R42 - Dizziness and giddiness Status: Acute Assessment and Plan: The last few weeks she did have some issues with vertigo, nasal congestion and was placed on meclizine, Flonase and some steroids by her PCP. She has been off on steroids now and is not taking meclizine in a few days due to improve symptoms. She still feels slightly off balance at times due to her vertigo. Continue with p.r.n. meclizine and Flonase (7) Urinary hesitancy: Code(s): R39.11 - Hesitancy of micturition Status: Acute Assessment and Plan: She also reports some hesitancy with urinating as well as foul odor to her urine. She saw her PCP a few weeks ago who did a urinalysis and she was told she did not have an infection. She has a long history of urologic issues and she will need to follow-up with the urologist as an outpatient for further monitoring and workup. UA was normal. No signs of infection. Some microscopic hematuria with 2+ blood and 6-10 RBCs. Will need Urology follow up and outpt work up (8) Ankle pain: Code(s): M25.579 - Pain in unspecified ankle and joints of unspecified foot Status: Acute Assessment and Plan: Yesterday prior to arrival she was also standing on a step stool when the stool fell over and inverted her right ankle. Ankle x-ray shows no acute fracture. She reports improved ankle pain and swelling at this time except when walking. Continue ankle brace for right ankle, rest, ice, compression, elevate Doing well. (9) RAMIREZ (obstructive sleep apnea): Code(s): G47.33 - Obstructive sleep apnea (adult) (pediatric) Status: Inactive Assessment and Plan: She was recently diagnosed with sleep apnea was supposed to start her CPAP last night before coming into the ER. Will c
--- NOTE | 2020-06-08 14:27 | WPDMODSED ---
Moderate Sedation Note-Pt Data Patient Data Diagnosis: acute coronary syndrome Present Complaint: 54-year-old patient presenting with intermittent ischemic chest pain and mild troponin rise Procedure to be performed/Plan: left heart catheterization Allergies Allergy/AdvReac Type Severity Reaction Status Date / Time shellfish derived Allergy Unknown Anaphylactic Verified 06/05/20 18:51 Shock HYDROCODONE BIT AdvReac Unknown Sweating Uncoded 06/05/20 18:51 Home Medications Medication Instructions Recorded Confirmed Type alprazolam 0.5 mg PO BID PRN 06/05/20 06/06/20 History amlodipine 10 mg PO DAILY 06/05/20 06/06/20 History aspirin [Adult Aspirin EC Low 81 mg PO DAILY 06/05/20 06/06/20 History Strength] atenolol 25 mg PO BID 06/05/20 06/06/20 History atorvastatin 20 mg PO HS 06/05/20 06/06/20 History [id number] 1 tablet PO DIRECTED PRN 06/05/20 06/06/20 History duloxetine 120 mg PO DAILY 06/05/20 06/06/20 History eszopiclone [Lunesta] 3 mg PO HS 06/05/20 06/06/20 History famotidine 40 mg PO HS 06/05/20 06/06/20 History fluticasone propionate 1 spray INTRANASAL TID 06/05/20 06/06/20 History hydrochlorothiazide 25 mg PO DAILY 06/05/20 06/06/20 History lisinopril 10 mg PO BID 06/05/20 06/06/20 History meclizine 25 mg PO TID PRN 06/05/20 06/06/20 History omeprazole 40 mg PO DAILY 06/05/20 06/06/20 History tramadol 50 mg PO TID PRN 06/05/20 06/06/20 History vitamin B complex [B 1 tablet PO DAILY 06/05/20 06/06/20 History Complex-Vitamin B12] ibuprofen 400 mg PO TID PRN 06/06/20 06/06/20 History Current Medications: Active Medications Acetaminophen (Acetaminophen 325 Mg Tablet) 650 mg PO Q4H PRN PRN Reason: Mild Pain (1-3) or Fever Last Admin: 06/07/20 17:57 Dose: 650 mg Documented by: Alprazolam (Alprazolam (*Crx) 0.5 Mg Tablet) 0.5 mg PO BID PRN PRN Reason: Anxiety Amlodipine Besylate (Amlodipine Besylate 5 Mg Tablet) 10 mg PO DAILY [facility] Last Admin: 06/08/20 08:59 Dose: 10 mg Documented by: Aspirin (Aspirin 81 Mg Enteric Tablet) 81 mg PO DAILY [facility] Last Admin: 06/08/20 08:59 Dose: 81 mg Documented by: Atenolol (Atenolol 25 Mg Tablet) 25 mg PO Q12HR [facility] Last Admin: 06/08/20 08:59 Dose: 25 mg Documented by: Duloxetine HCl (Duloxetine Hcl 60 Mg Capsule.Dr) 120 mg PO DAILY [facility] Last Admin: 06/08/20 09:00 Dose: 120 mg Documented by: Famotidine (Famotidine 20 Mg Tablet) 40 mg PO HS [facility] Last Admin: 06/07/20 21:11 Dose: 40 mg Documented by: Fluticasone Propionate (Fluticasone Propionate 0.05% Na Spr 16 Gm Btl (*Bkc)) 1 spray NASAL Q12HR [facility] Last Admin: 06/08/20 09:00 Dose: 1 spray Documented by: Heparin Sodium (Porcine) (Heparin Sodium 5,000 Units/Ml Vial) 4,000 units IV PUSH PRN PRN PRN Reason: aPTT less than 55 seconds Last Admin: 06/06/20 06:14 Dose: 4,000 units Documented by: Heparin Sodium (Porcine) (Heparin Sodium 5,000 Units/Ml Vial) 3,000 units IV PUSH PRN PRN PRN Reason: aPTT 55 - 70 seconds Last Admin: 06/06/20 13:11 Dose: 3,000 units Documented by: Hydrochlorothiazide (Hydrochlorothiazide 25 Mg Tablet) 25 mg PO DAILY [facility] Last Admin: 06/07/20 08:34 Dose: 25 mg Documented by: Heparin Sodium/Dextrose (Heparin Sodium/D5w 100 Units/Ml) 25,000 units in 250 mls @ 14 mls/hr IV CONT .[id number] [facility]; Protocol Last Admin: 06/08/20 06:19 Dose: 1,400 units/hr, 14 mls/hr Documented by: Sodium Chloride (Normal Saline Iv) 500 mls @ 100 mls/hr IV CONT .Q5H [facility] Lisinopril (Lisinopril 10 Mg Tablet) 10 mg PO DAILY [facility] Last Admin: 06/08/20 09:00 Dose: 10 mg Documented by: Meclizine HCl (Meclizine Hcl 25 Mg Tablet) 25 mg PO TID PRN PRN Reason: Dizziness Morphine Sulfate (Morphine Sulfate (*Crx) 4 Mg/Ml Inj) 4 mg IV PUSH Q2H PRN PRN Reason: Pain Rated 7-10 Morphine Sulfate (Morphine Sulfate (*Crx) 2 Mg/Ml Inj) 2 mg IV PUSH Q4H PRN PRN Reason: Chest Pain Nitroglycerin (Nitroglycerin Ointment 1 Inch Dose) 1 inch TRANSDERM Q6HR [facility] Last Admin:
[2020-06-08] MEDS: diphenhydrAMINE HCl CAP 25 MG CAPSULE 50 MG PO (14:29)
--- NOTE | 2020-06-08 14:43 | PC.NURSE ---
Patient to cardiac labor relations representative via stretcher. Report given to FIDENCIO Medina.
--- NOTE | 2020-06-08 15:14 | WPDCARDPROC ---
Cardiac Cath Procedure Note Date of procedure:: 06/08/20 Performing physician:: Iván Martin MD Indication:: chest pain, mild troponin rise indicative of acute coronary syndrome Brief clinical history:: this is a 54-year-old woman who entered the hospital over the weekend with some chest pain and had a very modest rise in her troponin levels following the event. No significant coronary disease previously patient is hypertensive and obese. Procedure Procedure performed:: Left ventriculography coronary angiography femoral artery angiogram Sedation/Medication given:: fentanyl 50 mg Versed 2 mg case start time 1458 hours case end time 3:10 p.m. sedation provided by Concepcion Kirkpatrick RN, trained observer Access site:: right femoral artery Estimated blood loss:: 10-15 cc Procedure note:: patient was brought to the cardiac catheterization lab in the postabsorptive state the right femoral triangle was prepared and draped in the usual fashion. Anesthesia was by provided with 1% lidocaine infiltrated locally. Following this the right femoral artery was punctured using the modified Seldinger technique and a 5 Latvian vascular sheath was placed. a 5 Latvian angled pigtail catheter was then used to document left-sided hemodynamics and to injected LV g in the NICHOLS projection. After this the left coronary artery was injected in multiple projections using a standard 5 Latvian FL4 catheter. After this the right coronary was injected using a 5 Latvian JR4 catheter. Following this the cineangiograms were reviewed in the case was terminated. The angiogram was done of the femoral artery through the sheath after which it was determined the sheath will be removed with direct manual compression. The procedure was well tolerated there were no apparent complications. 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 Findings:: Hemodynamics: Central aortic pressure is 144/74 left ventricle 146/3 end-diastolic of 15. There is no gradient on pullback across the aortic valve. Left ventricle: The LV is normal in size all segments contract vigorously the global ejection fraction is 70% by visual estimation the left main coronary artery is nicely patent the LAD is a moderate caliber artery extending down to and around the apex. The LAD has scattered mild luminal irregularities but no significant lesions are seen. The circumflex is a moderate caliber artery extending to the marginal branches. The circumflex also has mild diffuse luminal irregularities but no hemodynamically significant lesions are seen. The right coronary artery is large in caliber and dominant to the posterior circulation. The right coronary artery has mild diffuse luminal irregularities and no functionally significant lesions are seen. Conclusion:: 1. Angiographically very mild diffuse coronary disease with mild scattered luminal irregularities throughout all coronary arteries but no significant flow-limiting lesions are seen. 2. Normal left ventricular systolic contractility Iván Martin MD [facility]
[2020-06-08 15:26] LABS: Activated Clotting Time 120 sec (74-137)
--- NOTE | 2020-06-08 17:05 | PC.NURSE ---
Patient returned to room following cardiac cath. Report received from FIDENCIO Medina.
[2020-06-08] MEDS: SODIUM CHLORIDE 0.9% IV 1,000 ML 125 ML IV CONT (17:33)
[2020-06-08] MEDS: FAMOTIDINE 20 MG TABLET 40 MG PO (20:38)
[2020-06-09] VITALS (8 sets, daily range): BP systolic 118–152; BP diastolic 71–84; PULSE 64–85; RESP 18–22; TEMP 35.7–36.2; O2SAT 93–96
[2020-06-09 05:45] LABS: Anion Gap 5 mmol/L (8-16); Blood Urea Nitrogen 13 mg/dL (7-17); Calcium 8.9 mg/dL (8.4-10.2); Carbon Dioxide 28 mmol/L (22-30); Chloride 103 mmol/L (98-107); Estimated CRCL calculation 128 ml/min; Estimated Glomerular Filt Rate > 60; Glucose 146 mg/dL (65-105); Magnesium 1.8 mg/dL (1.6-2.3); Sodium 136 mmol/L (137-145)
[2020-06-09] MEDS: predniSONE 40 MG, predniSONE 10 MG 50 MG PO (06:17)
[2020-06-09] MEDS: ROSUVASTATIN 10 MG TABLET 40 MG PO (09:50)
[2020-06-09] MEDS: ASPIRIN 81 MG ENTERIC TABLET PO (09:50)
[2020-06-09] MEDS: VITAMIN B COMPLEX CAPSULE 1 CAP PO (09:50)
[2020-06-09] MEDS: DULoxetine HCL 60 MG CAPSULE.DR 120 MG PO (09:51)
[2020-06-09] MEDS: PANTOPRAZOLE 40 MG TABLET PO (09:51)
[2020-06-09] MEDS: hydroCHLOROthiazide 25 MG TABLET PO (09:51)
[2020-06-09] MEDS: amLODIPine BESYLATE 5 MG TABLET 10 MG PO (09:51)
[2020-06-09] MEDS: lisinopriL 10 MG TABLET PO (09:52)
[2020-06-09] MEDS: METOPROLOL SUCCINATE EXT REL 100 MG TABCR PO (09:52)
--- NOTE | 2020-06-09 12:21 | PM.DS ---
DS: Admitting Diagnosis Admitting Diagnosis Admitting Diagnosis: NSTEMI, elevated troponin levels DS: Discharge Diagnosis Discharge Diagnosis (1) Acute non-ST elevation myocardial infarction (NSTEMI): Code(s): I21.4 - Non-ST elevation (NSTEMI) myocardial infarction Status: Acute Assessment and Plan: Patient came with elevated troponins with no ST elevation found on EKG. Cardiology was consulted and appreciate recommendations. Cardiac Cath showed Angiographically very mild diffuse coronary disease with mild scattered luminal irregularities throughout all coronary arteries but no significant flow-limiting lesions are seen. Normal left ventricular systolic contractility. Okay for discharge from Cardiology standpoint. CP has resolved F/u with Cardiology per their instructions Continue with cardiac medications per Cardiology rec (2) Chest pain: Qualifiers: Chest pain type: unspecified Qualified Code(s): R07.9 - Chest pain, unspecified Code(s): R07.9 - Chest pain, unspecified Status: Acute Assessment and Plan: See above a/p (3) Hypertension: Qualifiers: Hypertension type: unspecified Qualified Code(s): I10 - Essential (primary) hypertension Code(s): I10 - Essential (primary) hypertension Status: Acute Assessment and Plan: Blood pressure 150s sys most recently Continue cardiac/HTN meds per Cardiology rec (4) HLD (hyperlipidemia): Code(s): E78.5 - Hyperlipidemia, unspecified Status: Acute Assessment and Plan: Will need follow up as outpatient Continue with rosuvastatin 40 mg as rec per Cardiology (5) Anxiety: Code(s): F41.9 - Anxiety disorder, unspecified Status: Acute Assessment and Plan: Continue home Xanax p.r.n. (6) Vertigo: Code(s): R42 - Dizziness and giddiness Status: Acute Assessment and Plan: No acute issues (7) Urinary hesitancy: Code(s): R39.11 - Hesitancy of micturition Status: Acute Assessment and Plan: UA grossly unremarkable other than microscopic hematuria with 2+ blood and 6-10 RBCs. No other s/sx of infection. f/u with PCP and possible outpatient Urology referral (8) Ankle pain: Code(s): M25.579 - Pain in unspecified ankle and joints of unspecified foot Status: Acute Assessment and Plan: improving. No acute findings on xray. Continue ankle brace for right ankle, rest, ice, compression, elevate (9) RAMIREZ (obstructive sleep apnea): Code(s): G47.33 - Obstructive sleep apnea (adult) (pediatric) Status: Inactive Assessment and Plan: No acute issues Continue CPAP (10) Tobacco use: Code(s): Z72.0 - Tobacco use Status: Acute Assessment and Plan: Smoking cessation encouraged DS: Summary Hospital Course Reason for hospitalization: NSTEMI, elevated troponins, chest pain Hospital Course: Date of arrival: 06/05/20 Date of discharge: 06/09/20 Patient is a 54 year old female with a history of hypertension, high cholesterol, tobacco use, who presented to the emergency room on 06/05 after having episode of chest pain earlier in the day. Prior to arrival, patient took 3 doses of 81 mg aspirin with minimal input. While in the ED, serial troponin levels was 0.051, 0.118, and 0.174. EKG showed borderline ST-T wave abnormalities in inferior leads. VS showed BP elevated 191/108. NSTEMI was of concern and was placed on heparin
--- NOTE | 2020-06-09 12:39 | PM.PNCARD ---
Progress Note: A&P Assessment and Plan (1) Acute non-ST elevation myocardial infarction (NSTEMI): Code(s): I21.4 - Non-ST elevation (NSTEMI) myocardial infarction Status: Acute Assessment and Plan: Mild troponin elevation with chest pain suggestive of NSTEMI at presentation, however, minimal luminal irregularities on coronary angiography, possibly due to spasm and/or microvascular dysfunction. Continue aspirin, statin, beta-jes, lisinopril. Atorvastatin change to rosuvastatin. Atenolol discontinued in favor of Toprol XL. Follow-up in the office in [address] Hawley. Counseled and symptoms to monitor including recurrent chest pain, dizziness, edema, palpitations, shortness of breath. Patient and verbalized understanding. All questions answered to their satisfaction. Reviewed post cardiac catheterization precautions as noted in discharge instructions. Advised to avoid strenuous at and/or sexual activity for the next 7 days. Disposition per hospitalist service. (2) Hypertension: Qualifiers: Hypertension type: unspecified Qualified Code(s): I10 - Essential (primary) hypertension Code(s): I10 - Essential (primary) hypertension Status: Acute Assessment and Plan: Fair control. (3) HLD (hyperlipidemia): Code(s): E78.5 - Hyperlipidemia, unspecified Status: Acute Assessment and Plan: Cholesterol 249, LDL 161, TG 259 while taking atorvastatin 20 mg q.h.s. -- still very high! Changed to rosuvastatin 40 mg daily. Given CAD albeit nonobstructive LDL goal less than 70 advised. (4) Tobacco use: Code(s): Z72.0 - Tobacco use Status: Acute Assessment and Plan: Counseled patient regarding tobacco use. Patient states she is quitting this admission. (5) History of anaphylaxis: Code(s): Z87.892 - Personal history of anaphylaxis Status: Acute Assessment and Plan: Pre treated, no issues with cardiac catheterization. Subjective Date/time seen: Date of service: 06/09/20 12:39 Follow-up for chest pain, elevated troponin, status post cardiac catheterization Left heart catheterization yesterday revealed minimal luminal irregularities. Patient feels well, no chest pain, dizziness or shortness of breath. Patient would like to be discharged home. Tolerating medications. at bedside. Explained catheterization findings, medical therapy recommendations and follow-up. All questions answered to their satisfaction. Review of Systems Constitutional: Constitutional: Denies fatigue, Denies lethargy and Denies weakness Eyes: Eyes: Reports no additional eye complaints ENT: Denies epistaxis and Denies neck pain Cardiovascular: Cardiovascular: Denies chest pain, Denies diaphoresis, Denies pedal edema, Denies leg edema, Denies lightheadedness, Denies palpitations, Denies dyspnea and Denies dyspnea on exertion Respiratory: Respiratory: Denies cough, Denies dyspnea, Denies dyspnea on exertion and Denies wheezing Gastrointestinal: Gastrointestinal: Denies abdominal pain, Denies melena and Denies hematochezia Genitourinary: Genitourinary: Denies hematuria Musculoskeletal: Musculoskeletal: Reports arthralgias (Osteoarthritis) and Denies neck pain Integumentary/Breasts: Skin/Breast: Denies rash Neurologic: Reports system reviewed and no additional complaints, except as documented, Denies behavioral changes and Denies weakness Psychiatric: Psychiatric: Reports anxiety, Denies behavioral changes and Reports depression Endocrine: Endocrine: Denies fatigue and Denies palpitations Allergic/Immunologic: Allergic/Immunologic: Denies wheezing Exam Narrative: Exam Narrativ
== END 2020-06-09 13:15 | disposition home or self-care (01) | DRG 190 ==
LOC: ANHED 22:40 → ANHIMU 06-06 01:39
PROVIDERS: Emergency Medicine; Internal Medicine Cardiovascular Disease; Physician Assistant; Specialist; Admitting Provider Internal Medicine; Emergency Provider Emergency Medicine; PCP Family Medicine; Visit Provider Physician Assistant
PROC: 4A023N7 Measurement of Cardiac Sampling and Pressure, Left Heart, Percutaneous Approach (ICD-10-PCS; CPT 93452; principal; 2020-06-08 14:30)
DX: I21.4 Non-ST elevation (NSTEMI) myocardial infarction (principal); I10 Essential (primary) hypertension; E78.5 Hyperlipidemia, unspecified; F41.9 Anxiety disorder, unspecified; R42 Dizziness and giddiness; R39.11 Hesitancy of micturition; M25.579 Pain in unspecified ankle and joints of unspecified foot; G47.33 Obstructive sleep apnea (adult) (pediatric); F17.210 Nicotine dependence, cigarettes, uncomplicated; Z28.21 Immunization not carried out because of patient refusal; Z79.899 Other long term (current) drug therapy; Z87.892 Personal history of anaphylaxis; Z91.013 Allergy to seafood
CPT/HCPCS: 36415; 71046; 73610; 80048; 80061; 81001; 83036; 83735; 84484; 85025; 85610; 85730; 93005; 93458; 96374; 96375; 99285; A9270; C1887; C1894; C8929; J1644; J2250; J3010; J7030; J7040; J7512; Q9957